=== PATIENT | female | born 1995 | race Caucasian/White ===

== ENCOUNTER 2019-06-13 12:43 | Emergency (ER) | payer BC ==
[2019-06-13] MEDS ORDERED: ASPIRIN 81 MG TABLET, CHEWABLE PO ONE (13:03)
--- NOTE | 2019-06-13 13:03 | ER Document Report ---
ED Medical Screen (RME) - General Chief Complaint: Chest Pain Stated Complaint: CHEST PAIN/DIFFICULTY BREATHING Time Seen by Provider: 06/13/19 13:01 Mode of Arrival: Ambulatory Information source: Patient Notes: 23-year-old female presents to ED for complaint of chest pain the last 3 days. 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 She states this pain has continued where is her pain usually goes away within 10 minutes. Patient is alert oriented respirations regular nonlabored speaking in full sentences. He had a insolvency consultant in [place] Dr. Arre[place] in [place]. She states she has been endoscopy in about 3 months and does not have a insolvency consultant yet. She does not have a local primary care doctor either. She is having extreme fatigue and nausea with double vision. Last menstrual period was May 21, 2019. I have greeted and performed a rapid initial assessment of this patient. A comprehensive ED assessment and evaluation of the patient, analysis of test resu lts and completion of medical decision making process will be conducted by an additional ED providers. Physical Exam - Vital signs Vitals: Temp Pulse Resp BP Pulse Ox 99.2 F 88 16 128/74 H 99 06/13/19 12:56 06/13/19 12:56 06/13/19 12:56 06/13/19 12:56 06/13/19 12:56 Course - Vital Signs Vital signs: Temp Pulse Resp BP Pulse Ox 99.2 F 88 16 128/74 H 99 06/13/19 12:56 06/13/19 12:56 06/13/19 12:56 06/13/19 12:56 06/13/19 12:56
[2019-06-13 13:38] LABS: ABSOLUTE EOSINOPHILS # (AUTO) 0.1 10^3/uL (0.0-0.6); ABSOLUTE LYMPHOCYTES (AUTO) 2.1 10^3/uL (0.5-4.7); ABSOLUTE MONOCYTES (AUTO) 0.3 10^3/uL (0.1-1.4); ABSOLUTE NEUT (AUTO) 3.9 10^3/uL (1.7-8.2); BASOPHILS % (AUTO) 0.5 % (0-2); EOSINOPHILS % (AUTO) 1.5 % (0-6); HEMATOCRIT 42.5 % (36.0-47.0); HEMOGLOBIN 14.3 g/dL (12.0-15.5); LYMPHOCYTES % (AUTO) 32.6 % (13-45); MEAN CORPUSCULAR HGB CONC 33.7 g/dL (32.0-36.0); MEAN CORPUSCULAR VOLUME 89 fl (80-97); MONOCYTES % (AUTO) 4.8 % (3-13); PLATELET COUNT 153 10^3/uL (150-450); RED BLOOD COUNT 4.77 10^6/uL (3.72-5.28); RED CELL DISTRIBUTION WIDTH 13.5 % (11.5-14.0); SEGMENTED NEUTROPHILS % (AUTO) 60.6 % (42-78); TOTAL CELLS COUNTED % (AUTO) 100 %; WHITE BLOOD COUNT 6.4 10^3/uL (4.0-10.5)
--- NOTE | 2019-06-13 13:47 | RADIOLOGY REPORT (SQ) ---
EXAM DESCRIPTION: CHEST 2 VIEWS COMPLETED DATE/TIME: 06/13/2019 1:22 pm REASON FOR STUDY: Chest pain COMPARISON: None. EXAM PARAMETERS: NUMBER OF VIEWS: two views TECHNIQUE: Digital Frontal and Lateral radiographic views of the chest acquired. RADIATION DOSE: NA LIMITATIONS: none FINDINGS: LUNGS AND PLEURA: No opacities, masses or pneumothorax. No pleural effusion. MEDIASTINUM AND HILAR STRUCTURES: No masses or contour abnormalities. HEART AND VASCULAR STRUCTURES: Heart normal size. No evidence for failure. BONES: No acute findings. HARDWARE: None in the chest. OTHER: No other significant finding. IMPRESSION: 1. NO ACUTE RADIOGRAPHIC FINDING IN THE CHEST. TECHNICAL DOCUMENTATION: JOB ID: [id number] [employer]- All Rights Reserved Reading location - IP/workstation name: [email or web address]
[2019-06-13 14:01] LABS: ALBUMIN 4.3 g/dL (3.5-5.0); ALKALINE PHOSPHATASE 69 U/L (38-126); ANION GAP 10 (5-19); ASPARTATE AMINO TRANSFERASE 22 U/L (14-36); BILIRUBIN,DIRECT 0.1 mg/dL (0.0-0.4); BILIRUBIN,TOTAL 0.6 mg/dL (0.2-1.3); BLOOD UREA NITROGEN 10 mg/dL (7-20); CALCIUM 9.2 mg/dL (8.4-10.2); CARBON DIOXIDE 22 mmol/L (22-30); CHLORIDE 108 mmol/L (98-107); GLUCOSE 93 mg/dL (75-110); POTASSIUM 4.1 mmol/L (3.6-5.0); TOTAL PROTEIN 7.4 g/dL (6.3-8.2)
--- NOTE | 2019-06-13 14:17 | ER Document Report ---
ED Cardiac - General Chief Complaint: Chest Pain Stated Complaint: CHEST PAIN/DIFFICULTY BREATHING Time Seen by Provider: 06/13/19 13:01 Mode of Arrival: Ambulatory Notes: CHIEF COMPLAINT: Chest pain, fluttering in the chest, exertional dyspnea HPI: 23-year-old female with a history of factor V Leiden and a history of cardiovascular disease diagnosed in [place] presenting for 3 to 4 days of a squeezing sensation in the upper sternal region of the chest that is intermittent comes and goes for several minutes at a time. She also reports some fluttering sensation and a flushing sensation when this occurs. Patient reports some exertional dyspnea over the last 3 to 4 days with fatigue. No history of thyroid disease. Patient is not on blood thinners at this time. Patient states that at one point when she was following with hematology in [place] they thought she had a blood clot but were not able to definitively find one. ROS: See HPI - all other systems were reviewed and are otherwise negative Constitutional: no fever Eyes: no drainage, no blurred vision ENT: no runny nose, no sore throat Cardiovascular: + chest pain, + fluttering Resp: + SOB, no cough GI: no vomiting, no diarrhea : no dysuria Integumentary: no rash Allergy: no hives Musculoskeletal: no extremity pain or swelling Neurological: no numbness/tingling, no weakness MEDICATIONS: I agree with the patient medications as charted by the RN. ALLERGIES: I agree with the allergies as charted by the RN. PAST MEDICAL HISTORY/PAST SURGICAL HISTORY: Reviewed and agree as charted by RN. SOCIAL HISTORY: Reviewed and agree as charted by RN. FAMILY HISTORY: No significant familial comorbid conditions directly related to patient complaint EXAM: Reviewed vital signs as charted by RN. CONSTITUTIONAL: Alert and oriented and responds appropriately to questions. Well-appearing; well-nourished HEAD: Normocephalic; atraumatic EYES: PERRL; Conjunctivae clear, sclerae non-icteric ENT: normal nose; no rhinorrhea; moist mucous membranes; pharynx without lesions noted NECK: Supple without meningismus; non-tender; no cervical lymphadenopathy, no masses CARD: RRR; no murmurs, no clicks, no rubs, no gallops; symmetric distal pulses RESP: Normal chest excursion without splinting or tachypnea; breath sounds clear and equal bilaterally; no wheezes, no rhonchi, no rales, pulse oximetry ABD/GI: Normal bowel sounds; non-distended; soft, non-tender, no rebound, no guarding; no palpable organomegaly or masses. BACK: The back appears normal and is non-tender to palpation, there is no CVA tenderness EXT: Normal ROM in all joints; non-tender to palpation; no cyanosis, no effusions, no edema SKIN: Normal color for age and race; warm; dry; good turgor; no acute lesions noted NEURO: Moves all extremities equally; Motor and sensory function intact PSYCH: The patient's mood and manner are appropriate. Grooming and personal hygiene are appropriate. MDM: 23-year-old female with history of factor V Leiden presenting with chest discomfort, fluttering in the chest, exertional dyspnea over the last several days. Not on blood thinners currently. Screening labs obtained in triage, will add TSH, INR. Will obtain CTA of the chest to evaluate for pulmonary embolus. Patient is not hypoxic. She is not dyspneic with speaking. Regular rate and rhythm on auscultation, EKG normal sinus rhythm with nonspecific T wave flattening in the inferior leads. No old EKG for comparison - Related Data Allergies/Adverse Reactions: amoxicillin Allergy (Verified 06/13/19 13:06) Past Medical History - General Information source: Patient - Social History Smoking Status: Unknown if Ever Smoked Family History: CAD, Hypertension Patient has suicidal ideation: No Patient has homicidal ideation: No Physical Exam - Vital signs Vitals: Temp Pulse Resp BP Pulse Ox 99.2 F 88 16 128/74 H 99 06/13/19 12:56 06/13/19 12:56 06/13/19 12:56 06/13/19 12:56 06/13/19 12:56 Course - Re-evaluation Re-evalutation: 06/13/19 15:31 In no distress at this time. Normal sinus rhythm on the monitor. CT did not show evidence of pulmonary embolus or other abnormalities. Her lab work does not show acute abnormalities, TSH, troponin, electrolytes are normal. Patient is on medication for reflux. She indicates that she will obtain hematology follow-up in [place]. Will refer patient to local cardiology group for follow-up. Low suspicion for ACS at this time. - Vital Signs Vital signs: Temp Pulse Resp BP Pulse Ox 99.2 F 88 16 128/74 H 99 06/13/19 12:56 06/13/19 12:56 06/13/19 12:56 06/13/19 12:56 06/13/19 12:56 - Laboratory Result Diagrams: 06/13/19 13:15 06/13/19 13:15 Laboratory results interpreted by me: 06/13/19 13:15 Chloride 108 H Discharge - Discharge Clinical Impression: Chest pain Qualifiers: Chest pain type: unspecified Qualified Code(s): R07.9 - Chest pain, unspecified Dyspnea Qualifiers: Dyspnea type: dyspnea on exertion Qualified Code(s): R06.09 - Other forms of dyspnea Condition: Stable Disposition: HOME, SELF-CARE Additional Instructions: Follow-up closely with cardiology for further evaluation and treatment call for appointment. Obtain hematology follow-up in [place] as discussed. Your imaging studies and lab work today did not show acute abnormalities or definitive reason for your symptoms today. If you have worsening shortness of breath, fever, concerns please return for reevaluation Referrals: KHANH SANCHEZ MD [ACTIVE STAFF] - Follow up as needed
[2019-06-13 14:38] LABS: INTERNATIONAL RATION (INR) 1.09; PROTHROMBIN TIME 14.1 SEC (11.4-15.4)
--- NOTE | 2019-06-13 15:22 | RADIOLOGY REPORT (SQ) ---
EXAM DESCRIPTION: CTA CHEST COMPLETED DATE/TIME: 06/13/2019 3:11 pm REASON FOR STUDY: pulmonary embolus, SOB hx factor V COMPARISON: None. TECHNIQUE: CT scan of the chest performed using helical scanning technique with dynamic intravenous contrast injection. Images reviewed with lung, soft tissue and bone windows. Reconstructed coronal and sagittal MPR images reviewed. Additional 3 dimensional post-processing performed to develop Maximal Intensity Projection images ([place] P). All images stored on PACS. All CT scanners at this facility use dose modulation, iterative reconstruction, and/or weight based d osing when appropriate to reduce radiation dose to as low as reasonably achievable (ALARA). [facility]: Dose Right [facility]: CareDose [facility]: Dose Right [facility]: Teradose 4D [facility]: [employer] CONTRAST TYPE AND DOSE: contrast/concentration: Isovue 350.00 mg/ml; Total Contrast Delivered: 66.0 ml; Total Saline Delivered: 80.0 ml Contrast bolus optimized for the pulmonary arteries. Not diagnostic for the aorta. RENAL FUNCTION: None required. The patient is less than 50 years old. RADIATION DOSE: CT Rad equipment meets quality standard of care and radiation dose reduction techniq ues were employed. CTDIvol: 15.5 - 19.8 mGy. DLP: 546 mGy-cm. . LIMITATIONS: None. FINDINGS: LUNGS AND PLEURA: No masses, infiltrates, or pneumothorax. No pleural effusions or pleura l calcifications. AORTA AND GREAT VESSELS: No aneurysm. Contrast bolus not optimized for the aorta. HEART: No pericardial effusion. No significant coronary artery calcifications. PULMONARY ARTERIES: No emboli visualized in the main pulmonary arteries or the segmental branches. HILAR AND MEDIASTINAL STRUCTURES: No identified masses or abnormal nodes. HARDWARE: None in the chest. UPPER ABDOMEN: Status post cholecystectomy. THYROID AND OTHER SOFT TISSUES: No masses. No adenopathy. BONES: No acute or significant finding. 3D MIPS: Confirm above findings. OTHER: No other significant finding. IMPRESSION: Negative examination for pulmonary embolism. COMMENT: Quality ID # [id number]: Final reports with documentation of one or more dose reduction techniques (e.g., Automated exposure control, adjustment of the mA and/or kV according to patient size, use of iterative reconstruction technique) TECHNICAL DOCUMENTATION: JOB ID: [id number] [email or web address]- All Rights Reserved Reading location - IP/workstation name: [id number]
[2019-06-13 15:53] VITALS: BP 117/68
--- NOTE | 2019-06-13 22:36 | EKG REPORT ---
SEVERITY:- ABNORMAL ECG - SINUS RHYTHM NONSPECIFIC T ABNORMALITIES, INFERIOR LEADS : Confirmed by: Sylvie Musa 13-Jun-2019 22:35:09
== END 2019-06-13 15:55 | disposition home or self-care (01) ==
LOC: ER 12:43
DX: R07.9 Chest pain, unspecified (principal); R06.09 Other forms of dyspnea; R09.89 Other specified symptoms and signs involving the circulatory and respiratory systems; R53.83 Other fatigue; K21.9 Gastro-esophageal reflux disease without esophagitis; Z79.899 Other long term (current) drug therapy; Z88.0 Allergy status to penicillin; Z82.49 Family history of ischemic heart disease and other diseases of the circulatory system
CPT/HCPCS: 36415; 71046; 71275; 80053; 84443; 84484; 84702; 85025; 85610; 93005; 93010; 99285

== ENCOUNTER 2019-09-02 18:37 | Emergency (ER) | payer BC ==
[2019-09-02] MEDS ORDERED: NORMAL SALINE 1000 ML 1,000 ML IV ONE ×3 (19:11→23:18)
[2019-09-02 19:29] LABS: ABSOLUTE EOSINOPHILS # (AUTO) 0.1 10^3/uL (0.0-0.6); ABSOLUTE LYMPHOCYTES (AUTO) 2.3 10^3/uL (0.5-4.7); ABSOLUTE MONOCYTES (AUTO) 0.4 10^3/uL (0.1-1.4); ABSOLUTE NEUT (AUTO) 4.6 10^3/uL (1.7-8.2); BASOPHILS % (AUTO) 0.5 % (0-2); EOSINOPHILS % (AUTO) 0.8 % (0-6); HEMATOCRIT 40.5 % (36.0-47.0); HEMOGLOBIN 14.4 g/dL (12.0-15.5); LYMPHOCYTES % (AUTO) 31.2 % (13-45); MEAN CORPUSCULAR HEMOGLOBIN 30.9 pg (27.0-33.4); MEAN CORPUSCULAR HGB CONC 35.5 g/dL (32.0-36.0); MEAN CORPUSCULAR VOLUME 87 fl (80-97); MONOCYTES % (AUTO) 5.3 % (3-13); PLATELET COUNT 153 10^3/uL (150-450); RED BLOOD COUNT 4.65 10^6/uL (3.72-5.28); RED CELL DISTRIBUTION WIDTH 13.9 % (11.5-14.0); SEGMENTED NEUTROPHILS % (AUTO) 62.2 % (42-78); TOTAL CELLS COUNTED % (AUTO) 100 %; WHITE BLOOD COUNT 7.4 10^3/uL (4.0-10.5)
[2019-09-02 19:46] LABS: ALBUMIN 4.3 g/dL (3.5-5.0); ALKALINE PHOSPHATASE 53 U/L (38-126); ANION GAP 10 (5-19); ASPARTATE AMINO TRANSFERASE 22 U/L (14-36); BILIRUBIN,DIRECT 0.3 mg/dL (0.0-0.4); BILIRUBIN,TOTAL 0.3 mg/dL (0.2-1.3); BLOOD UREA NITROGEN 12 mg/dL (7-20); CALCIUM 9.4 mg/dL (8.4-10.2); CARBON DIOXIDE 23 mmol/L (22-30); CHLORIDE 107 mmol/L (98-107); GLUCOSE 117 mg/dL (75-110); TOTAL PROTEIN 7.7 g/dL (6.3-8.2)
[2019-09-02 20:04] LABS: VENOUS BLOOD BASE EXCESS -2.1 mmol/L; VENOUS BLOOD HCO3 23.4 mmol/L (20-32); VENOUS BLOOD PCO2 42.6 mmHg (35-63); VENOUS BLOOD PH 7.36 (7.30-7.42)
--- NOTE | 2019-09-02 20:23 | ER Document Report ---
ED Medical Screen (RME) - General Chief Complaint: Flu Symptoms Stated Complaint: FLU SYMPTOMS Time Seen by Provider: 09/02/19 18:38 Mode of Arrival: Ambulatory Information source: Patient Notes: Patient is a 23-year-old female presenting to the emergency department chief complaint of cough, shortness of breath and fever. Patient reports symptoms started Wednesday which was 5 days ago. 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 Patient reports she had COVID-19 testing done on Wednesday which is still pending. Patient reports today her shortness of breath got severe so she decided to come to the emergency department. On arrival she is tachycardic in the 140s however her lung sounds are clear and she does not appear to be in any acute distress. She denies any history of anxiety. Denies history of DVT or PE. She has not had any chest pain. In reviewing her chart she has a previous visit in which it describes a blood clotting disorder, patient states she has had testing done on that and that was found to not be true. I am attempting to get her a bed on the main side as she is currently on pod 5 which is the respiratory pod at this time. Orders are initiated and we are monitoring her closely. I have greeted and performed a rapid initial assessment of this patient. A comprehensive ED assessment and evaluation of the patient, analysis of test results and completion of the medical decision making process will be conducted by additional ED providers. I have specifically instructed the patient or family members with the patient to immediately return to any nursing staff should anything change in the patient's condition or with their chief complaint. - Related Data Allergies/Adverse Reactions: amoxicillin Allergy (Verified 06/13/19 13:06) Past Medical History Past Surgical History: Reports: Hx Appendectomy, Hx Cholecystectomy, Hx Oral Surgery - hip,knee,jaw Physical Exam - Vital signs Vitals: Temp Pulse Resp Pulse Ox 99.8 F 145 H 22 H 98 09/02/19 18:54 09/02/19 18:54 09/02/19 18:54 09/02/19 18:54 Course - Vital Signs Vital signs: Temp Pulse Resp BP Pulse Ox 98.2 F 137 H 18 137/86 H 99 09/02/19 19:47 09/02/19 19:47 09/02/19 19:47 09/02/19 19:47 09/02/19 19:47 - Laboratory Result Diagrams: 09/02/19 19:04 09/02/19 19:04 Laboratory results interpreted by me: 09/02/19 19:04 Glucose 117 H
--- NOTE | 2019-09-02 20:52 | RADIOLOGY REPORT (SQ) ---
EXAM DESCRIPTION: XR CHEST 1 VIEW COMPLETED DATE/TME: 09/02/2019 19:51 CLINICAL HISTORY: 23 years, Female, cough/fever/sob COMPARISON: Prior study from 06/13/2019 NUMBER OF VIEWS: One TECHNIQUE: Single frontal view of the chest was obtained portably LIMITATIONS: None. FINDINGS: Cardiac and mediastinal contours are stable. Lungs are clear. No pleural effusion or pneumothorax. IMPRESSION: No acute disease. copyright 2010 [email or web address]- All Rights Reserved
--- NOTE | 2019-09-02 21:08 | ER Document Report ---
Entered by MODESTA HAMILTON SCRIBE 09/02/192052 Acting as scribe for:MAURI GARAY IV, MD ED Respiratory Problem - General Chief Complaint: Shortness Of Breath Stated Complaint: FLU SYMPTOMS Time Seen by Provider: 09/02/19 18:38 Mode of Arrival: Ambulatory Information source: Patient Notes: This 23 year old female patient presents to the ED today with complaints of cough, shortness of breath, and fever for the past x1 week. 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 Patient also reports extreme fatigue, diaphoresis, and chest pain. Patient states that she had COVID-19 testing done x3 days ago which is still pending. Patient states that her shortness of breath worsened today so she decided to come to the ED. She denies any history of thyroid problems or blood clots, but states that she has had a positive D-dimer a couple of years ago; however, the results were never followed up on. - Related Data Allergies/Adverse Reactions: amoxicillin Allergy (Verified 06/13/19 13:06) Past Medical History - General Information source: Patient - Social History Smoking Status: Unknown if Ever Smoked Cigarette use (# per day): No Chew tobacco use (# tins/day): No Smoking Education Provided: No Family History: Reviewed & Not Pertinent, CAD, Hypertension Patient has suicidal ideation: No Patient has homicidal ideation: No Past Surgical History: Reports: Hx Appendectomy, Hx Cholecystectomy, Hx Oral Surgery - hip,knee,jaw Review of Systems - Review of Systems Constitutional: See HPI, Diaphoresis, Fever, Other - Fatigue EENT: No symptoms reported Cardiovascular: See HPI, Chest pain Respiratory: See HPI, Cough, Short of breath Gastrointestinal: No symptoms reported Genitourinary: No symptoms reported Female Genitourinary: No symptoms reported Musculoskeletal: No symptoms reported Skin: No symptoms reported Hematologic/Lymphatic: No symptoms reported Neurological/Psychological: No symptoms reported -: Yes All other systems reviewed and negative Physical Exam - Vital signs Vitals: Temp Pulse Resp Pulse Ox 99.8 F 145 H 22 H 98 09/02/19 18:54 09/02/19 18:54 09/02/19 18:54 09/02/19 18:54 - General General appearance: Alert, Other - Nontoxic appearing In distress: None - HEENT Head: Normocephalic, Atraumatic Eyes: Normal Pupils: PERRL - Respiratory Respiratory status: No respiratory distress, Other - No increased work of breathing. Maintaining airway with a pulse ox ranging from 98-100%. Chest status: Nontender Breath sounds: Normal Chest palpation: Normal - Cardiovascular Rhythm: Regular Heart sounds: Normal auscultation Murmur: No - Abdominal Inspection: Normal Distension: No distension Bowel sounds: Normal Tenderness: Nontender - Abdomen soft Organomegaly: No organomegaly - Back Back: Normal, Nontender - Extremities General upper extremity: Normal inspection General lower extremity: Normal inspection - Neurological Neuro grossly intact: Yes - Psychological Associated symptoms: Normal affect, Normal mood - Skin Skin Temperature: Warm Skin Moisture: Dry Skin Color: Normal Course - Re-evaluation Re-evalutation: 09/03/19 00:41 Results of ED MSE discussed with patient. All questions were answered prior to discharge. Instructions for self quarantine for the next 14 days in light of COVID 19 concerns discussed with patient. Emergency signs and symptoms, reasons to return to the emergency department discussed with patient. 09/03/19 00:43 At time of discharge patient's heart rate is 98, O2 saturations are 98% on room air, respiration rate is 11, blood pressure is 123/92. Patient is sitting upright in bed, has no obvious evidence of acute respiratory distress, is not tachypneic, is no wheezing, and does not appear toxic. - Vital Signs Vital signs: Temp Pulse Resp BP Pulse Ox 98.2 F 137 H 23 H 123/92 H 98 09/02/19 19:47 09/02/19 19:47 09/03/19 00:07 09/03/19 00:07 09/03/19 00:07 - Laboratory Result Diagrams: 09/02/19 19:04 09/02/19 19:04 Laboratory results interpreted by me: 09/02/19 09/02/19 19:04 19:04 D-Dimer 1.15 H Glucose 117 H - Diagnostic Test Radiology reviewed: Reports reviewed - EKG Interpretation by Me Additional EKG results interpreted by me: 09/03/19 00:42 EKG obtained on 09/02/2019 at 1847 hrs. was interpreted by this MD. Findings: Sinus tachycardia, rate 144, normal axis, P waves proceed QRS complexes, QRS complexes appear narrow, there are no obvious patterns of ST segment elevation or depression present to suggest acute myocardial ischemia or infarction. Impression sinus tachycardia with nonspecific ST segments. Discharge - Discharge Clinical Impression: Acute dyspnea, Tachycardia Condition: Good Disposition: HOME, SELF-CARE Additional Instructions: Return to the Emergency Department without delay if any worse. HOME CARE INSTRUCTIONS & INFORMATION: Thank you for choosing us for your medical needs. We hope you're satisfied with the care you received. After you leave, you must properly care for your problem and, at the same time, observe its progress. Any condition can change. Some illnesses can change rapidly over hours or days. If your condition worsens, return to the Emergency Department or see your physician promptly. ABOUT YOUR X-RAYS AND EKG'S: If you had an EKG or X-rays taken, they have been read by the Emergency Physician. The X-rays and EKG's will also be read by a Radiologist or Gis Physical Scientist within 24 hours. If discrepancies are noted, you will be notified by telephone. Please be certain the ED has a correct telephone number & address where you can be reached. Also, realize that some fractures or abnormalities do not show up on initial X-rays. If your symptoms continue, see your physician. ABOUT YOUR LABORATORY TEST: If you had laboratory tests, the results have been reviewed by the Emergency Physician. Some test results (for example cultures) may not be available for several days. You will be contacted if any test result shows you need additional treatment. Please be certain the ED has a correct telephone number and address where you can be reached. ABOUT YOUR MEDICATIONS: You will receive instructions on how to take your medicine on the prescription label you receive. Additional information may be provided by the Pharmacy. If you have questions afterwards, call the ED for clarification or further instructions. Some prescribed medications may cause drowsiness. Do not perform tasks such as driving a car or operating machinery without consulting your Pharmacist. If you feel you need a refill of pain medication, your condition will need re-evaluation. Please do not call for a refill of any medication. ABOUT YOUR SIGNATURE: Signature of this document acknowledges to followin. Understanding that you received emergency treatment and that you may be released before al medical problems are known or treated. Please be certain the ED has a correct phone number & address where you can be reached. 2. Acknowledgement that you will arrange for follow-up care as recommended. 3. Authorization for the Emergency Physician to provide information to your follow-up Physician in order to maximize your care. AT ANY TIME, IF YOUR SYMPTOMS CHANGE SIGNIFICANTLY OR WORSEN OR YOU DEVELOP NEW SYMPTOMS, RETURN TO THE EMERGENCY DEPARTMENT IMMEDIATELY FOR RE-EVALUATION. OUR GOAL IS TO PROVIDE EXCELLENT MEDICAL CARE! WE HOPE THAT WE HAVE MET YOUR EXPECTATIONS DURING YOUR EMERGENCY DEPARTMENT VISIT AND THAT YOU FEEL YOU HAVE RECEIVED EXCELLENT CARE! Dyspnea, Nonspecific You were evaluated for shortness of breath, or dyspnea. Dyspnea has many causes, and some are more serious than others. Sometimes it's impossible to diagnose the cause of dyspnea with the tests that are available on an emergency basis. Based on our evaluation today, you do not need hospitalization now. We found no evidence of pneumonia, collapsed lung, blood clots in the lung, tumors, or heart failure. Causes of non-specific dyspnea can include asthma or bronchospasm, hyperventilation, emotional distress, heart disease, emphysema, fibrosis of the lung, and stiffness of the chest wall. In healthy individuals with a single episode, it's sometimes reasonable to do nothing but wait to see if the problem occurs again. Additional tests used to evaluate dyspnea can include cardiac stress testing, echocardiography, pulmonary function testing, CAT scan of the chest, bronchoscopy or pulmonary biopsy. Return if shortness of breath persists or worsens, or if you develop chest pain, fever, cough, confusion, or fainting. Forms: Return to Work Referrals: DENIS SUÁREZ MD [HONORARY] - Follow up as needed I personally performed the services described in the documentation, reviewed and edited the documentation which was dictated to the scribe in my presence, and it accurately records my words and actions.
--- NOTE | 2019-09-02 21:18 | EKG REPORT ---
SEVERITY:- ABNORMAL ECG - SINUS TACHYCARDIA ABNORMAL T, CONSIDER ISCHEMIA, INFERIOR LEADS LA ABNORMALITY : Confirmed by: Caesar Rao MD 02-Sep-2019 21:17:21
[2019-09-02] MEDS ORDERED: ACETAMINOPHEN 325 MG TABLET PO ONE (21:23)
[2019-09-02 22:50] LABS: A TYPE INFLUENZA AG NEGATIVE (NEGATIVE); B INFLUENZA AG NEGATIVE (NEGATIVE)
[2019-09-02] MEDS ORDERED: KETOROLAC TROMETHAMINE INJ/PF 30 MG/1 ML SDV IV ONE (23:12)
--- NOTE | 2019-09-02 23:23 | RADIOLOGY REPORT (SQ) ---
CLINICAL INDICATION: dyspnea, tachycardia, + d dimer. . TECHNIQUE: CT arteriography was obtained of the chest with multiplanar MIP and/or 3-D angiographic reconstructions. This exam was performed according to our departmental dose-optimization program, which includes automated exposure control, adjustment of the mA and/or kV according to patient size and/or use of iterative reconstruction techniques. COMPARISON: None. CORRELATION: None. FINDINGS: Inadequate contrast bolus. Average Hounsfield unit measurement within main pulmonary artery segment of 168. Artifact from venous opacification. This was on the second injection. First injection and imaging was nondiagnostic as well There is a dilute contrast bolus. No central pulmonary embolus. Branch vessels cannot be assessed. Thoracic aorta is of normal caliber. The heart is of normal size. No pericardial effusion. No bulky mediastinal adenopathy. Thymus in the anterior mediastinum, expected for age. Thyroid is homogeneous The lungs are grossly clear. No consolidation or edema. No effusion or pneumothorax. Visualized abdominal contents are unremarkable. Visualized bones are unremarkable. IMPRESSION: Dilute contrast bolus, even on second injection. No central pulmonary was. Branch vessels cannot be assessed. Lungs grossly clear .
[2019-09-03] MEDS ORDERED: ALBUTEROL SULFATE HFA (90 MCG/PUFF) 8 GM MDI (1 MDI/ER DISP) IH PRN ×2 (00:26→01:10)
[2019-09-03] MEDS ORDERED: ALBUTEROL SULFATE 0.083% NEB 2.5 MG/3 ML AMPUL NEB ONE (00:26)
[2019-09-03 01:20] VITALS: BP 127/92
== END 2019-09-03 01:20 | disposition home or self-care (01) ==
LOC: ER 18:37
DX: Z20.828 Contact with and (suspected) exposure to other viral communicable diseases (principal); R06.00 Dyspnea, unspecified; R00.0 Tachycardia, unspecified; R05 Cough; R06.02 Shortness of breath; R61 Generalized hyperhidrosis; R50.9 Fever, unspecified; Z88.0 Allergy status to penicillin; Z90.49 Acquired absence of other specified parts of digestive tract
CPT/HCPCS: 93005; 99284; 96361; 96374; 36415; 87040; 84443; 85025; 87635; 80053; 85379; 82803; 87804; 71045; 71275; 93010; J1885; J7030

== ENCOUNTER 2020-04-26 08:00 | Day surgery (SDC) | payer BC, OTHER ==
[~2020-04-26 08:00] MED LIST: PROPOFOL INJ 200 MG/20 ML VIAL IV ONE
--- NOTE | 2020-04-26 11:16 | Operative Report ---
Operative Report DATE OF SURGERY: 04/26/20 Operative Report: The risks benefits and alternatives of the procedure explained to the patient in detail and informed consent is obtained.A GIF Olympus video scope was inserted into the patient's mouth and hypopharynx, the esophagus is identified intubated and insufflated ,the scope was then advanced through the esophagus stomach and duodenum ,retroflexion maneuver is done, the esophagus stomach and first and second portions of the duodenum examined PREOPERATIVE DIAGNOSIS: Epigastric pain rule out peptic ulcer disease POSTOPERATIVE DIAGNOSIS: Esophagitis/esophageal ulcer. Gastritis status post biopsy rule out Helicobacter pylori OPERATION: EGD with biopsy SURGEON: SALOMON BECERRIL ANESTHESIA: LMAC TISSUE REMOVED OR ALTERED: As noted above. COMPLICATIONS: None. ESTIMATED BLOOD LOSS: None. INTRAOPERATIVE FINDINGS: As noted above. PROCEDURE: Patient tolerated the procedure well. No immediate postprocedure complications are noted. Patient is discharged in good condition. Discharge date 04/26/2020. Discharge diet: Regular. Discharge activity: Regular. 2 to 3-week follow-up to discuss findings. Patient is instructed to call the office or proceed to the emergency room should there be any further problems questions. Wait on the pathology.
[2020-04-26] MEDS ORDERED: LORAZEPAM INJ 2 MG/1 ML VIAL ONE (11:28)
[2020-04-26] MEDS ORDERED: DEXMEDETOMIDINE INJ 80 MCG/20 ML VIAL IV ONE (11:31)
[2020-04-26] MEDS ORDERED: PROPOFOL INJ 200 MG/20 ML VIAL IV ONE (12:33)
[2020-04-26 12:36] VITALS: BP 136/59
--- NOTE | 2020-04-26 13:53 | PDOC CONSULTATION ---
Consultation Consult Date: 04/26/20 Attending physician:: SALOMON BECERRIL Provider Consulted: JUVENAL SAMUELS Consult reason:: panic attack History of Present Illness Admission Date/PCP: JOSE JUAN MOYER History of Present Illness: JOSSIE CALDERON is a 24 year old female with PMH of GERD who presented today for routine, outpatient EGD. She tolerated the procedure well. When waking up from anesthesia, she exhibited agitation requiring several sedating medications to calm her. She reports that she has never had depression, anxiety, SI, HI, panic attacks, or similar reactions to medications in the past. She does not remember the episode and is now back to her baseline mental status. Hospitalist service was consulted to assess for safety prior to discharge. Past Medical History Cardiac Medical History: Denies: Coronary Artery Disease, Myocardial Infarction, Hypertension Pulmonary Medical History: Reports: Asthma Denies: Bronchitis, Chronic Obstructive Pulmonary Disease (COPD), Pneumonia Neurological Medical History: Denies: Seizures GI Medical History: Reports: Gastroesophageal Reflux Disease Musculoskeltal Medical History: Denies: Arthritis Psychiatric Medical History: Denies: Alcohol Dependency, Bipolar Disorder, Dementia, Depression, General Anxiety Disorder, Post Traumatic Stress Disorder, Schizoaffective Disorder, Substance Abuse, Tobacco Dependency Hematology: 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 5 Past Surgical History Past Surgical History: Reports: Appendectomy, Cholecystectomy Social History Lives with: Alone Smoking Status: Never Smoker Frequency of Alcohol Use: None Hx Recreational Drug Use: No Hx Prescription Drug Abuse: No Family History Family History: Reviewed & Not Pertinent, CAD, Hypertension Parental Family History Reviewed: Yes Children Family History Reviewed: Yes Sibling(s) Family History Reviewed.: Yes Medication/Allergy Home Medications: No Home Medications 04/23/20 Allergies/Adverse Reactions: ampicillin Allergy (Mild, Verified 04/26/20 10:45) Physical Exam Vital Signs: Temp Pulse Resp BP Pulse Ox 98.1 F 90 17 136/59 H 100 04/26/20 12:23 04/26/20 12:23 04/26/20 12:23 04/26/20 12:23 04/26/20 12:23 Intake & Output 04/25/20 04/26/20 04/27/20 06:59 06:59 06:59 Intake Total 1000 Balance 1000 Weight 86.36 kg General appearance: PRESENT: no acute distress, cooperative. ABSENT: disheveled Eye exam: ABSENT: scleral icterus Mouth exam: PRESENT: moist Throat exam: ABSENT: post pharyngeal erythema Neck exam: ABSENT: JVD Respiratory exam: PRESENT: clear to auscultation nabila Cardiovascular exam: PRESENT: RRR GI/Abdominal exam: PRESENT: normal bowel sounds, soft. ABSENT: tenderness Extremities exam: ABSENT: pedal edema Neurological exam: PRESENT: alert, awake, oriented to person, oriented to place, oriented to time, oriented to situation Psychiatric exam: PRESENT: appropriate affect, normal mood. ABSENT: agitated, anxious, depressed, homicidal ideation, manic, suicidal ideation, unusual affect Focused psych exam: ABSENT: delusional, internal stimuli, paranoid, restlessness Skin exam: ABSENT: rash Assessment and Plan - Diagnosis (1) Encounter for postanesthesia care Is this a current diagnosis for this admission?: Yes (2) Psychomotor agitation Is this a current diagnosis for this admission?: Yes - Plan Summary Summary: 24 F with no psychiatric past medical history who demonstrated agitation/hyperactive delirium post-anesthesia in the PACU. She is now awake, alert, conversive and does not remember the event. She adamantly denies SI, HI, panic symptoms or any other symptoms that would be concerning for self-harm. 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 She exhibits no depressive symptoms. She likely had a bad reaction to anesthesia, and does not require further inpatient monitoring at this time. - Time Time Spent with patient: 25-34 minutes Anticipated Discharge Disposition: Home, Self Care Anticipated Discharge Timeframe: within 24 hours
== END 2020-04-26 15:35 | disposition home or self-care (01) ==
LOC: END 08:00
PROVIDERS: ATTEND Internal Medicine Gastroenterology
DX: K22.10 Ulcer of esophagus without bleeding (principal); K21.00 Gastro-esophageal reflux disease with esophagitis, without bleeding; K29.50 Unspecified chronic gastritis without bleeding; R45.1 Restlessness and agitation; D69.3 Immune thrombocytopenic purpura; F05 Delirium due to known physiological condition; D68.51 Activated protein C resistance; E28.2 Polycystic ovarian syndrome; Z90.49 Acquired absence of other specified parts of digestive tract; Z20.828 Contact with and (suspected) exposure to other viral communicable diseases
CPT/HCPCS: 43239; 88342 ×2; 88305 ×2; 00731; J2060; J2704; J3490; 731

== ENCOUNTER → 2020-05-28 | Outpatient (CLI) | payer OTHER ==
--- NOTE | 2020-05-29 15:12 | NEURO WORKBENCH EEG REPORT ---
EEG Report Patient: Lico Chavez ID: [id number] Referring Doctor: Carlo Arriaga MD DOS: 05/28/2020 Medications: Propranolol History This is a 24 year old right handed female with a history of asthma, memory loss, twitching, PCP has concern for nocturnal seizures/ISABELA. This EEG was requested for possible seizures. EEG Interpretation This EEG was recorded in the awake and drowsy states only. The awake EEG is characterized by a well-organized background without a clearly noted posterior dominant rhythm. The remainder of the background was characterized by a combination of alpha and beta frequencies. There were prominent eye blinks and flutters. There was prominent EKG artifact as well as low amplitude myogenic artifact. Drowsiness was characterized by slowing of the background rhythms. Sleep was not obtained. Photic stimulation resulted in no noted driving response nor epileptiform discharges but there was prominent eye fluttering. There were several head twitches, mostly to the left, with associated muscle and movement artifact but no definitive epileptiform discharges. These increased in frequency during drowsiness. There was a facial twitch during drowsiness with right posterior quadrant sharply contoured narrow waveforms in the right posterior quadrant (T6, O2) that appear more consistent with muscle artifact than polyspikes. There was artifact in the T6 electrode. The EKG showed a regular rhythm. EEG Classification * Normal EEG Impression This EEG is within normal limits for age. There were several head movements noted without clear epileptiform discharges in the midst of prominent movement artifact. If clinically indicated, a repeat EEG where sleep is obtained may be requested. INTERPRETING NEUROLOGIST: Rehana Hobbs MD, FRCPC Board Certified in Neurology, with special qualification in Child Neurology, and in Clinical Neurophysiology [facility]
== END ==
LOC: NEURO 07:45
PROVIDERS: ATTEND Pediatrics
DX: R56.9 Unspecified convulsions (principal)
CPT/HCPCS: 95819